=== PATIENT | female | born 2000 | race Hispanic/Latino ===

== ENCOUNTER 2024-08-29 01:46 | Emergency (ER) | payer OTHER ==
[~2024-08-29] VITALS: Ht 157.5 cm; Wt 88.5 kg
--- NOTE | 2024-08-29 02:12 | ERN ---
General Chief Complaint: Abdominal Pain Stated Complaint: EPIGASTRIC PAIN X 4 HOURS, VOMITING X 1 EPISODE Time Seen by MD: 02:08 Source: patient History of Present Illness Initial Comments Patient is a healthy 24-year-old female who had abdominal pain starting about 5 hours ago accompanied by emesis x1. The pain is burning and remind her of when she had GERD in the past. Otherwise she has no past medical history no allergies. Allergies: Coded Allergies: No Known Drug Allergies (Unverified Allergy, Unknown, 08/29/24) Past Medical History Past Medical History: No Pertinent History Past Surgical History: Other Surgical History Other: ALIA Female( History) LMP: Aug 22, 2024 Constitutional: (-) chills, (-) diaphoresis, (-) fever, (-) malaise, (-) weakness, (-) other documentation EENTM: (-) eye pain, (-) blurred vision, (-) tearing, (-) double vision, (-) ear pain, (-) ear discharge, (-) nose pain, (-) nose congestion, (-) throat pain, (-) Throat swelling, (-) mouth pain, (-) tooth pain, (-) mouth swelling, (-) other documentation Respiratory: (-) cough, (-) orthopnea, (-) short of breath, (-) stridor, (-) wheezing, (-) other documentation Cardiovascular: (-) chest pain, (-) edema, (-) palpitations, (-) syncope, (-) dyspnea on exertion, (-) other documentation Gastrointestinal/Abdominal: (+) nausea, (+) vomiting Genitourinary: (-) vaginal discharge, (-) vaginal bleeding, (-) dysuria, (-) frequency, (-) hematuria, (-) pain, (-) other documentation Musculoskeletal: (-) Neck pain, (-) back pain, (-) Flank Pain, (-) joint pain, (-) joint swelling, (-) muscle pain, (-) muscle stiffness, (-) gout, (-) other documentation Skin: (-) laceration, (-) contusion, (-) abrasion, (-) abscess, (-) rash, (-) change in color, (-) change in hair, (-) change in nails, (-) diaphoresis, (-) dryness, (-) other documentation Neuro: (-) altered mental status, (-) headache, (-) syncope, (-) paralysis, (-) numbness, (-) seizure, (-) pre-existing deficit, (-) tremors, (-) weakness, (-) dizziness, (-) slurred speech, (-) vertigo, (-) other documentation Physical Exam General Appearance: (+) no apparent distress Orientation: (+) oriented x 3 Head/Face Trauma: No Eye: bilateral eye normal inspection, bilateral eye PERRL, bilateral eye EOMI Ear, Nose, Throat: (+) hearing grossly normal, (+) normal ENT inspection Neck: (+) normal inspection, (+) supple Respiratory: (+) chest non-tender, (+) lungs clear, (+) well ventilated Heart: (+) regular, (+) no gallop Vascular: (+) no edema, (+) normal peripheral pulse MDM Patient with nausea and vomiting x1 and abdominal pain for 4 hours. I will give her a GI cocktail and see if that relieves her symptoms. Patient's symptoms are completely gone with the GI cocktail. I think patient had an episode of GERD. I gave her instructions on how to take care of it using Pepcid or omeprazole. She can go home. ED Course Orders Procedure Category Date Status Time Lidocaine Hcl 2% PHA 08/29/24 Complete Viscous (Lidocaine Hcl 02:30 Mag/Alum/Simeth 30ml PHA 08/29/24 Complete (Maalox Plus 30ml) 02:30 Dicyclomine Hcl PHA 08/29/24 Complete (Bentyl 10mg/5ml 02:30 Current Medications Medications (Trade) Dose Ordered Sig/Maryana Route PRN Reason Start Time Stop Time Status Last Admin Dose Admin Al Hydroxide/Mg Hydroxide (MAALox PLUS 30ML) 30 ml ONCE ONCE PO 08/29/24 02:30 08/29/24 02:31 DC 08/29/24 02:27 Dicyclomine HCl (Bentyl 10mg/5ml Syrup) 10 mg ONCE ONCE PO 08/29/24 02:30 08/29/24 02:31 DC 08/29/24 02:27 Lidocaine HCl (Lidocaine HCl 2% Viscous) 10 ml ONCE ONCE PO 08/29/24 02:30 08/29/24 02:31 DC 08/29/24 02:27 Vital Signs Date Time Temp Pulse Resp B/P (MAP) Pulse Ox O2 Delivery O2 Flow Rate FiO2 08/29/24 01:48 99.3 88 18 123/52 100 Room Air 0 DX & DISP Disposition: Discharge Departure Impression: Primary Impression: Dyspepsia Condition: Stable Assign Patient to: While it is easy to treat these symptoms for GERD with antacids I recommend you contact your primary care physician to discuss long-term plans for this especially if you do not get relief with [id number] medications. ANNA SORIANO MD Aug 29, 2024 02:12
[2024-08-29] MEDS: LIDOCAINE HCL 2% VISCOUS 15 ML UDCUP PO ONE (02:27)
[2024-08-29] MEDS: MAG/ALUM/SIMETH 30 ML UDCUP PO ONE (02:27)
[2024-08-29] MEDS: DICYCLOMINE HCL 10 MG/5 ML ML PO ONE (02:27)
[2024-08-29 03:24] VITALS: BP 111/68; PULSE 71; RESP 18; TEMP 98.2; O2SAT 98
== END 2024-08-29 03:25 | disposition home or self-care (01) ==
LOC: EDH 01:46
DX: R10.13 Epigastric pain (principal)
CPT/HCPCS: 99284